=== PATIENT | male | born 1995 | race Caucasian/White ===

== ENCOUNTER 2018-03-13 13:26 | Outpatient (CLI) | payer OTHER | END 2018-03-13 13:27 | disposition home or self-care (01) | LOC: BICMRI 13:26 | PROVIDERS: ATTEND Family Medicine | DX: S46.911A Strain of unspecified muscle, fascia and tendon at shoulder and upper arm level, right arm, initial encounter (principal); S43.101A Unspecified dislocation of right acromioclavicular joint, initial encounter | CPT/HCPCS: 70210 ==